=== PATIENT | female | born 1955 | race Caucasian/White ===

== ENCOUNTER 2017-10-27 06:35 | Day surgery (SDC) | payer OTHER ==
[~2017-10-27 06:35] MED LIST: BUSPAR PO; CLONAZEPAM1 MG PO; WELLBUTRIN XL300 MG PO; XANAX XR2 MG PO; ZOLOFT100 MG PO
== END 2017-10-27 14:15 | disposition home or self-care (01) ==
LOC: CIR.AMB 06:35
DX: M66.241 Spontaneous rupture of extensor tendons, right hand (principal)